=== PATIENT | male | born 1970 | race Caucasian/White ===

== ENCOUNTER 2022-05-30 15:30 | Outpatient (CLI) | payer OTHER, SELFPAY ==
--- NOTE | ~2022-05-30 | MR_ITS ---
EXAMINATION: MR lumbar spine wo con DATE: 05/30/2022 16:52 INDICATION: Lumbago. Right sided sciatica. TECHNIQUE: Magnetic resonance imaging (MRI) of the lumbar spine was performed without intravenous con trast. Sequences included sagittal T2-weighted FSE, sagittal T2-weighted FS FSE, sagittal T1-weighted FSE, and axial T2-weighted FSE. COMPARISON: None FINDINGS: Bone alignment is normal. There are Schmorl's nodes at multiple levels. There is mild chron ic anterior wedging of T11-L1 vertebral bodies. There is mildly decreased disc height at T12-L1. The distal spinal cord signal intensity is normal. The conus medullaris is at L2. The following disc leve ls are specifically discussed: L1-L2: The disc does not extend beyond the endplate margin. There is mild bilateral facet joint osteo arthritis. There is no neural foraminal stenosis. There is no central canal stenosis. L2-L3: The disc does not extend beyond the endplate margin. There is mild bilateral facet joint osteo arthritis. There is no neural foraminal stenosis. There is no central canal stenosis. L3-L4: The disc is bulging. There is mild right and severe left facet joint osteoarthritis. There is mild bilateral neural foraminal stenosis. There is mild central canal stenosis. L4-L5: The disc is bulging. There is moderate right and mild left facet joint osteoarthritis. There i s mild bilateral neural foraminal stenosis. There is mild central canal stenosis. L5-S1: The disc does not extend beyond the endplate margin. There is moderate right and severe left f acet joint osteoarthritis. There is no neural foraminal stenosis. There is no central canal stenosis. IMPRESSION: 1. Mild lumbar spondylosis. Reviewed, dictated and finalized at location A. IMPRESSION: 1. Mild lumbar spondylosis.
== END 2022-05-30 15:31 | disposition home or self-care (01) ==
LOC: ANHIMG 15:36
PROVIDERS: PCP Emergency Medicine; Visit Provider Emergency Medicine
DX: M54.41 Lumbago with sciatica, right side (principal); M47.896 Other spondylosis, lumbar region
CPT/HCPCS: 72148

== ENCOUNTER 2023-09-30 03:10 | Emergency (ER) | payer OTHER, SELFPAY ==
[2023-09-30 03:10] VITALS: BP 132/100; PULSE 66; RESP 18; TEMP 36.6; O2SAT 97
--- NOTE | 2023-09-30 03:49 | ED.GENADULT ---
HPI - General Adult General Chief complaint: Skin/Abscess/Foreign Body Stated complaint: Skin Problem History of Present Illness HPI narrative: Jag presented to the ED with a rash on his upper extremities and upper torso as well as his groin. It is very itchy and started to weep. It occurred after he cut grass and was exposed to poison concha or sumac. No dyspnea, fevers, chill, nausea or vomiting reported. Related Data Home Medications Medication Instructions Recorded Confirmed alprazolam 1 mg tablet 1 mg PO BID PRN Anxiety 09/30/23 09/30/23 rosuvastatin 20 mg tablet 20 mg PO DAILY 09/30/23 09/30/23 Allergies Allergy/AdvReac Type Severity Reaction Status Date / Time silk sutures Allergy Uncoded 06/09/13 10:21 Review of Systems Review of Systems: All systems reviewed & are unremarkable except as noted in HPI and below PMFSH Social History Social History Smoking status: Current every day smoker Alcohol intake: current Exam Const: General: cooperative, healthy appearing, comfortable, no acute distress, well developed, alert, awake and Physically active Orientation/consciousness: oriented to person, oriented to place and oriented to time HENMT: Head: normal to inspection, normocephalic and atraumatic Ears: hearing grossly normal bilaterally and external ears normal Face/Nose/Sinus: Normal external nose present Eyes: General: appearance normal, both eyes and all related structures Periorbital: periorbital findings normal Sclera: sclerae normal Pupils: Equal, round and reactive pupils present Neck: Neck: normal visual inspection Chest: Chest palpation & inspection: normal inspection of the chest Resp: Effort & Inspection: normal respiratory effort, able to speak in complete sentences and no respiratory distress GI: Inspection: normal to inspection GI Palp: Yes Soft to palpation Auscultation: normal bowel sounds Skin: General skin exam: normal color and no rashes or lesions noted Other: erythematous maculopapular rash with excoriation and weeping on the upper extremities and upper torso Neuro: General: oriented to person, oriented to place and oriented to time Cranial nerves: Yes Equal, round and reactive pupils present Extrem: General: normal to inspection Course Course Emergency Course: given methylprednisone injection in clinic for presumed poison concha dermatitis Vital Signs Vital signs: Vital Signs Temperature 97.8 F 09/30/23 03:10 Pulse Rate 66 09/30/23 03:10 Respiratory Rate 18 09/30/23 03:10 Blood Pressure 132/100 H 09/30/23 03:10 Pulse Oximetry 97 09/30/23 03:10 Oxygen Delivery Room Air 09/30/23 03:10 Temperature 97.8 F 09/30/23 03:10 Pulse Rate 66 09/30/23 03:10 Respiratory Rate 18 09/30/23 03:10 Blood Pressure 132/100 H 09/30/23 03:10 Pulse Oximetry 97 09/30/23 03:10 Oxygen Delivery Room Air 09/30/23 03:10 Medical Decision Making Vital Signs Vital Signs: Vital Signs Temperature 97.8 F 09/30/23 03:10 Pulse Rate 66 09/30/23 03:10 Respiratory Rate 18 09/30/23 03:10 Blood Pressure 132/100 H 09/30/23 03:10 Pulse Oximetry 97 09/30/23 03:10 Oxygen Delivery Room Air 09/30/23 03:10 Temperature 97.8 F 09/30/23 03:10 Pulse Rate 66 09/30/23 03:10 Respiratory Rate 18 09/30/23 03:10 Blood Pressure 132/100 H 09/30/23 03:10 Pulse Oximetry 97 09/30/23 03:10 Oxygen Delivery Room Air 09/30/23 03:10 Discharge Plan Discharge Clinical Impression: Poison concha dermatitis Patient Disposition: Home, Self-Care Condition: Stable Instructions: Poison Concha (ED) Prescriptions: New prednisone 10 mg tablet 10 mg PO DIRECTED Qty: 40 0RF Rx Instructions: 40mgx4,30mgx4,20mgx4,10mgx4 No Action alprazolam 1 mg tablet 1 mg PO BID PRN (Reason: Anxiety) rosuvastatin 20 mg tablet 20 mg PO DAILY Follow-
[2023-09-30] MEDS: methylPREDNISolone SOD SUCC 125 MG VIAL IM (03:53)
[2023-09-30 04:08] VITALS: BP 136/82; PULSE 70; RESP 18; O2SAT 98
== END 2023-09-30 04:08 | disposition home or self-care (01) ==
PROVIDERS: Emergency Provider Family Medicine; PCP Emergency Medicine
DX: L23.7 Allergic contact dermatitis due to plants, except food (principal); F17.200 Nicotine dependence, unspecified, uncomplicated; Z79.899 Other long term (current) drug therapy
CPT/HCPCS: 96372; 99283; J2919